=== PATIENT | male | born 1985 | race Caucasian/White ===

== ENCOUNTER 2018-11-05 19:11 | Emergency (ER) | payer OTHER ==
--- OUTSIDE RECORDS SUMMARY | 2018-11-05 19:14 | XMS REPORT | Clinical Summary ---
:1985 Author Organization [facility] Address [address] [place] [address] Care Team Providers Name Role Phone Asked, No Pcp Primary Care Provider Unavailable Allergies Active Allergy Reactions Severity Noted Date Comments Sulfamethoxazole-Trimethoprim Itching High 11/04/2018 Medications Medication Sig Dispensed Refills Start Date End Date Status zolpidem (AMBIEN) 10 Take 10 mg by 0 08/20/2018 Active mg tablet mouth nightly. albuterol (PROAIR INHALATION 1 11 10/18/2018 Active HFA,PROVENTIL PUFF EVERY HFA,VENTOLIN HFA) 90 4-6HOURS mcg/actuation NEEDED FOR inhaler SHORTNESS OF BREATH ALPRAZolam (XANAX) 2 Take 2 mg by 2 10/14/2018 Active MG tablet mouth 2 (two) times a day. metoprolol succinate Take 50 mg by 0 09/22/2018 Active XL (TOPROL-XL) 50 mg mouth daily. 24 hr tablet montelukast Take 10 mg by 3 10/26/2018 Active (SINGULAIR) 10 mg mouth daily. tablet HYDROcodone-acetamin Take 1 tablet 0 10/26/2018 Active ophen (NORCO) 10-325 by mouth 4 mg per tablet (four) times a day. omeprazole Take by mouth 2 10/07/2018 Active (PriLOSEC) 40 MG daily. capsule fenofibrate Take 160 mg by 0 Active (LOFIBRA) 160 MG mouth daily. tablet brompheniramine-pseu TAKE 5ML BY 0 10/19/2018 Discontinued doeph-DM 2-30-10 MOUTH EVERY 8 9 mg/5 mL syrup HOURS NEEDED FOR COUGH. cyclobenzaprine Take 10 mg by 2 10/01/2018 Discontinued (FLEXERIL) 10 mg mouth 2 (two) 9 tablet times a day. fenofibrate Take 160 mg by 2 10/12/2018 Discontinued (LOFIBRA) 160 MG mouth daily. 9 tablet fluocinonide (LIDEX) 0 11/04/2018 Discontinued 0.05 % external 9 solution Active Problems Problem Noted Date MCI (mild cognitive impairment) 11/04/2018 Nonintractable headache 11/04/2018 Cervical disc disease 11/04/2018 Encounters Date Type Specialty Care Team Description 11/04/2018 Office Visit Neurology Nuan Akhtar, MCI (mild cognitive impairment) (Primary Dx); Nonintractable headache, unspecified chronicity pattern, unspecified headache type; Cervical disc disease; Fatigue, unspecified type after 11/04/2017 Social History Tobacco Use Types Packs/Day Years Used Date Former Smoker Smokeless Tobacco: Never Used Alcohol Use Drinks/Week oz/Week Comments Never Alcohol Habits Answer Date Recorded How often do you have a drink containing alcohol? Never 11/04/2018 How many drinks containing alcohol do you have on a typical Not asked day when you are drinking? How often do you have six or more drinks on one occasion? Not asked Sex Assigned at Date Recorded Not on file Job Start Date Occupation Industry Not on file Not on file Not on file Travel History Travel Start Travel End No recent travel history available. Last Filed Vital Signs Vital Sign Reading Time Taken Blood Pressure 141/84 11/04/2018 3:07 PM CDT Pulse 90 11/04/2018 3:07 PM CDT Temperature - - Respiratory Rate - - Oxygen Saturation - - Inhaled Oxygen Concentration - - Weight 102 kg (224 lb 11.2 oz) 11/04/2018 3:07 PM CDT Height 175.3 cm (5' 9") 11/04/2018 3:07 PM CDT Body Mass Index 33.18 11/04/2018 3:07 PM CDT Plan of Treatment Date Type Specialty Care Team Description 11/10/2018 Appointment Radiology Naun Akhtar MD [address] [address] 11/10/2018 Appointment Radiology Naun Akhtar MD [address] [address] 11/23/2018 Office Visit Neurology Naun Akhtar MD [address] [facility] [address] [place] [address] Health Maintenance Due Date Last Done Comments INFLUENZA VACCINE 12/30/2018 Results Not on fileafter 11/04/2017 Advance Directives Patient has advance care planning documents on file. For more information, please contact:Buster Cosby[address] [place] [address]
--- OUTSIDE RECORDS SUMMARY | 2018-11-05 19:14 | XMS REPORT ---
:1985 Author Organization [facility] Address [address] [place] [address] [address] [place] [address] Care Team Providers Name Role Phone Unavailable Unavailable Unavailable Problems This patient has no known problems. Allergies, Adverse Reactions, Alerts This patient has no known allergies or adverse reactions. Medications This patient has no known medications.
--- NOTE | 2018-11-05 20:20 | RAD REPORT ---
EXAM DESCRIPTION: CT - Head Brain Wo Cont - 11/05/2018 7:59 pm CLINICAL HISTORY: Headache COMPARISON: 2013 TECHNIQUE: Computed axial tomography of the head was obtained. IV contrast was not requested. All CT scans are performed using dose optimization technique as appropriate and may include automated exposure control or mA/KV adjustment according to patient size. FINDINGS: An intracranial bleed is not seen . The ventricles are normal in caliber. No extra-axial fluid collection is noted. Fluid within the sinuses/ mastoids is not seen. IMPRESSION: No acute intracranial abnormality is seen. If patient's symptoms persist MRI of the bra in would be recommended.
[2018-11-05] MEDS ORDERED: METOCLOPRAMIDE 10 MG/2mL INJ ONE (20:49)
[2018-11-05] MEDS ORDERED: KETOROLAC 30 MG/ML INJ ONE (20:49)
[2018-11-05] MEDS ORDERED: DIPHENHYDRAMINE 50 MG/ML VIAL ONE (20:49)
[2018-11-05] MEDS ORDERED: NA CHLORIDE 0.9% 1,000 ML ONE (20:49)
--- NOTE | 2018-11-05 21:21 | ER ---
Nurse's Notes [facility] Name: Steve Lee Age: 33 yrs Sex: Male : 1985 Arrival Date: 11/05/2018 Time: 19:14 Bed 28 Private MD: Diagnosis: Headache Presentation: 11/05 19:31 Presenting complaint: Patient states: "I have a headache for a week now. It just keeps jd3 getting worse. I tried to get get in with a neurologist, but they couldn't see me till next week or so. I did have a seizure recently from going cold turkey on my Xanax, but I don't think that is related.". Transition of care: patient was not received from another setting of care. Onset of symptoms was September 29, 2018. Risk Assessment: Do you want to hurt yourself or someone else? Patient reports no desire to harm self or others. Initial Sepsis Screen: Does the patient meet any 2 criteria? No. Patient's initial sepsis screen is negative. Does the patient have a suspected source of infection? No. Patient's initial sepsis screen is negative. Care prior to arrival: None. 19:31 Method Of Arrival: Ambulatory jd3 19:31 Acuity: ESTRELLITA 3 jd3 Triage Assessment: 20:01 Headache History: Denies prior headaches. General: Appears in no apparent distress. rv uncomfortable. Pain: Pain currently is 10 out of 10 on a pain scale. Pain began weeks ago Also complains of no other associated symptoms. Historical: - Allergies: 19:36 Bactrim; jd3 19:36 *unknown cream*; jd3 - Home Meds: 19:36 Xanax Oral [Active]; metoprolol tartrate 50 mg Oral tab 1 tab once daily for jd3 Hypertension [Active]; unknown cholesterol med [Active]; - PMHx: 19:36 Hyperlipidemia; Hypertension; Anxiety; High Cholesterol; jd3 - PSHx: 19:36 ANKLE; Hand; jd3 - Immunization history:: Adult Immunizations up to date. - Social history:: Smoking status: Patient uses tobacco products, denies chronic smoking, but will smoke occasionally. - Ebola Screening: : Patient negative for fever greater than or equal to 101.5 degrees Fahrenheit, and additional compatible Ebola Virus Disease symptoms. Screenin:36 Abuse screen: Denies threats or abuse. Nutritional screening: No deficits noted. jd3 Tuberculosis screening: No symptoms or risk factors identified. Fall Risk Ambulatory Aid- None/Bed Rest/Nurse Assist (0 pts). Gait- Normal/Bed Rest/Wheelchair (0 pts) Mental Status- Oriented to own ability (0 pts). Total Parsons Fall Scale indicates No Risk (0-24 pts). Assessment: 20:00 General: Appears in no apparent distress. uncomfortable, Behavior is calm, cooperative. rv Pain: Complains of pain in head. Neuro: Level of Consciousness is awake, alert, obeys commands, confused, Oriented to person, place, time, situation. Neuro: Reports headache. Cardiovascular: Patient's skin is warm and dry. Respiratory: Airway is patent. GI: No signs and/or symptoms were reported involving the gastrointestinal system. : No signs and/or symptoms were reported regarding the genitourinary system. EENT: No signs and/or symptoms were reported regarding the EENT system. Derm: Skin is intact. Musculoskeletal: No signs and/or symptoms reported regarding the musculoskeletal system. 21:01 Reassessment: Patient appears in no apparent distress at this time. Patient and/or rv family updated on plan of care and expected duration. Pain level reassessed. Patient is alert, oriented x 3, equal unlabored respirations, skin warm/dry/pink. EXPLAINED TO PATIENT BEFORE GIVING THE MEDICINES THAT HE NEEDS A RIDE HOME. PATIENT UNDERSTOOD AND AGREED VERBALLY. Vital Signs: 19:36 BP 146 / 87; Pulse 88; Resp 15 S; Temp 97.7(O); Pulse Ox 99% on R/A; Weight 99.79 kg jd3 (R); Height 5 ft. 9 in. (175.26 cm) (R); Pain 9/10; 20:00 BP 135 / 91; Pulse 92; Resp 17; Temp 98; Pulse Ox 97% ; rv 20:30 BP 124 / 71; Pulse 92; Resp 16; Pulse Ox 97% ; rv 21:01 BP 103 / 54; Pulse 89; Resp 17; Pulse Ox 96% ; rv 19:36 Body Mass Index 32.49 (99.79 kg, 175.26 cm) jd3 ED Course: 19:14 Patient arrived in ED. ag3 19:23 Hong, Graeme, RN is Primary Nurse. rv 19:25 Antony Mosley NP is PHCP. pm1 19:25 Ivan Duarte MD is Attending Physician. pm1 19:33 Triage completed. jd3 19:36 Arm band placed on. jd3 19:36 Patient has correct armband on for positive identification. Bed in low position. Call jd3 light in reach. Side rails up X 1. 19:[address] vm2 19:58 CT completed. Patient tolerated procedure well. Patient moved back from CT. vm2 20:00 CT Head Brain wo Cont In Process Unspecified. EDMS 20:00 Inserted saline lock: 20 gauge in left antecubital area, using aseptic technique. rv 21:38 No provider procedures requiring assistance completed. IV discontinued, intact, rv bleeding controlled, No redness/swelling at site. Pressure dressing applied. Administered Medications: 20:47 Drug: NS 0.9% 1000 ml Route: IV; Rate: 1000 ml; Site: left antecubital; rv 21:38 Follow up: IV Status: Completed infusion rv 20:50 Drug: TORadol 30 mg Route: IVP; Site: left antecubital; rv 21:37 Follow up: Response: Marked relief of symptoms rv 20:51 Drug: Benadryl 25 mg Route: IVP; Site: left antecubital; rv 21:37 Follow up: Response: Marked relief of symptoms rv 20:55 Drug: Reglan 10 mg Route: IVP; Site: left antecubital; rv 21:37 Follow up: Response: Marked relief of symptoms rv Outcome: 21:20 Discharge ordered by MD. pm1 21:38 Discharged to home ambulatory. rv 21:38 Condition: improved 21:38 Discharge instructions given to patient, Instructed on discharge instructions, follow up and referral plans. medication usage, Demonstrated understanding of instructions, follow-up care, medications, Prescriptions given X 1. 21:39 Patient left the ED. rv Signatures: Dispatcher [employer] EDID Antony Mosley NP [facility] pm1 Jenni Solorio vm2 Dalton Ward RN RN jd3 Graeme Pitts RN RN rv Krystle Talamantes ag3
--- NOTE | 2018-11-05 21:22 | EDPHYS ---
Physician Documentation [facility] Name: Steve Lee Age: 33 yrs Sex: Male : 1985 Arrival Date: 11/05/2018 Time: 19:14 Bed 28 Private MD: ED Physician Ivan Duarte HPI: 11/05 20:38 This 33 yrs old Male presents to ER via Ambulatory with complaints of pm1 Headache. 20:38 The patient complains of pain to the left side of head. The patient describes the pm1 headache as aching, constant. Onset: The symptoms/episode began/occurred 1 week(s) ago. Associated signs and symptoms: Pertinent positives: nausea, Pertinent negatives: dizziness, fever, neck stiffness, paresthesias, sinus congestion, sinus tenderness, vision changes, vision loss, vomiting, weakness. Severity of symptoms: in the emergency department the pain is unchanged. Headache History: Denies prior headaches. The symptoms are alleviated by Darkened room, over the counter pain medication, aspirin, quiet, the symptoms are aggravated by lights, noise. The patient has not experienced similar symptoms in the past. The patient has been recently seen by a physician: with similar presenting complaints, Seen by neurologist yesterday and has a MRI ordered for next week. Historical: - Allergies: 19:36 Bactrim; jd3 19:36 *unknown cream*; jd3 - Home Meds: 19:36 Xanax Oral [Active]; metoprolol tartrate 50 mg Oral tab 1 tab once daily for jd3 Hypertension [Active]; unknown cholesterol med [Active]; - PMHx: 19:36 Hyperlipidemia; Hypertension; Anxiety; High Cholesterol; jd3 - PSHx: 19:36 ANKLE; Hand; jd3 - Immunization history:: Adult Immunizations up to date. - Social history:: Smoking status: Patient uses tobacco products, denies chronic smoking, but will smoke occasionally. - Ebola Screening: : Patient negative for fever greater than or equal to 101.5 degrees Fahrenheit, and additional compatible Ebola Virus Disease symptoms. ROS: 20:38 Constitutional: Negative for fever, chills, and weight loss, Eyes: Negative for injury, pm1 pain, redness, and discharge, ENT: Negative for injury, pain, and discharge, Neck: Negative for injury, pain, and swelling, Cardiovascular: Negative for chest pain, palpitations, and edema, Respiratory: Negative for shortness of breath, cough, wheezing, and pleuritic chest pain. 20:38 Back: Negative for injury and pain, : Negative for injury, bleeding, discharge, and swelling, MS/Extremity: Negative for injury and deformity, Skin: Negative for injury, rash, and discoloration. 20:38 Abdomen/GI: Positive for nausea, Negative for abdominal pain, vomiting, diarrhea, constipation. 20:38 Neuro: Positive for headache, Negative for dizziness, numbness, tingling, weakness. Exam: 20:38 Constitutional: This is a well developed, well nourished patient who is awake, alert, pm1 and in no acute distress. Head/Face: Normocephalic, atraumatic. Eyes: Pupils equal round and reactive to light, extra-ocular motions intact. Lids and lashes normal. Conjunctiva and sclera are non-icteric and not injected. Cornea within normal limits. Periorbital areas with no swelling, redness, or edema. ENT: Nares patent. No nasal discharge, no septal abnormalities noted. Tympanic membranes are normal and external auditory canals are clear. Oropharynx with no redness, swelling, or masses, exudates, or evidence of obstruction, uvula midline. Mucous membranes moist. Neck: Trachea midline, no thyromegaly or masses palpated, and no cervical lymphadenopathy. Supple, full range of motion without nuchal rigidity, or vertebral point tenderness. No Meningismus. Chest/axilla: Normal chest wall appearance and motion. Nontender with no deformity. No lesions are appreciated. Cardiovascular: Regular rate and rhythm with a normal S1 and S2. No gallops, murmurs, or rubs. Normal PMI, no JVD. No pulse deficits. Respiratory: Lungs have equal breath sounds bilaterally, clear to auscultation and percussion. No rales, rhonchi or wheezes noted. No increased work of breathing, no retractions or nasal flaring. Abdomen/GI: Soft, non-tender, with normal bowel sounds. No distension or tympany. No guarding or rebound. No evidence of tenderness throughout. Back: No spinal tenderness. No costovertebral tenderness. Full range of motion. Skin: Warm, dry with normal turgor. Normal color with no rashes, no lesions, and no evidence of cellulitis. MS/ Extremity: Pulses equal, no cyanosis. Neurovascular intact. Full, normal range of motion. 20:38 Neuro: Orientation: is normal, Cranial nerves: CN II- XII are normal as tested, Cerebellar function: normal finger to nose testing, Motor: moves all fours, strength is normal, strength is 5/5 in all extremities, Sensation: is normal, no obvious gross deficits. Vital Signs: 19:36 BP 146 / 87; Pulse 88; Resp 15 S; Temp 97.7(O); Pulse Ox 99% on R/A; Weight 99.79 kg jd3 (R); Height 5 ft. 9 in. (175.26 cm) (R); Pain 9/10; 20:00 BP 135 / 91; Pulse 92; Resp 17; Temp 98; Pulse Ox 97% ; rv 20:30 BP 124 / 71; Pulse 92; Resp 16; Pulse Ox 97% ; rv 21:01 BP 103 / 54; Pulse 89; Resp 17; Pulse Ox 96% ; rv 19:36 Body Mass Index 32.49 (99.79 kg, 175.26 cm) jd3 MDM: 19:39 Patient medically screened. pm1 20:29 Data reviewed: vital signs. Data interpreted: Pulse oximetry: on room air is 99 %. pm1 Interpretation: normal. 20:39 Counseling: I had a detailed discussion with the patient and/or guardian regarding: the pm1 historical points, exam findings, and any diagnostic results supporting the discharge/admit diagnosis, radiology results, the need for outpatient follow up, a neurologist, to return to the emergency department if symptoms worsen or persist or if there are any questions or concerns that arise at home. 11/05 19:49 Order name: CT Head Brain wo Cont; Complete Time: 20:28 pm1 11/05 20:29 Order name: IV Saline Lock; Complete Time: 20:55 pm1 Administered Medications: 20:47 Drug: NS 0.9% 1000 ml Route: IV; Rate: 1000 ml; Site: left antecubital; rv 21:38 Follow up: IV Status: Completed infusion rv 20:50 Drug: TORadol 30 mg Route: IVP; Site: left antecubital; rv 21:37 Follow up: Response: Marked relief of symptoms rv 20:51 Drug: Benadryl 25 mg Route: IVP; Site: left antecubital; rv 21:37 Follow up: Response: Marked relief of symptoms rv 20:55 Drug: Reglan 10 mg Route: IVP; Site: left antecubital; rv 21:37 Follow up: Response: Marked relief of symptoms rv Disposition: 11/05/18 21:20 Discharged to Home. Impression: Headache. - Condition is Stable. - Discharge Instructions: General Headache Without Cause. - Prescriptions for Fiorinal 50- 325-40 mg Oral Capsule - take 1 capsule by ORAL route every 4 hours As needed - not to exceed 6 capsules per day; 20 capsule. - Medication Reconciliation Form, Thank You Letter, Antibiotic Education, Prescription Opioid Use form. - Follow up: Emergency Department; When: As needed; Reason: Worsening of condition. Follow up: Private Physician; When: 2 - 3 days; Reason: Recheck today's complaints, Continuance of care, Re-evaluation by your physician. - Problem is new. - Symptoms have improved. Addendum: 11/09/2018 16:36 Co-signature as Attending Physician, Ivan Duarte MD I agree with the assessment and t w4 plan of care. Signatures: Dispatcher [employer] EDMS Antony Mosley NP BOOKKEEPER ASSISTANT pm1 Dalton Ward RN RN jd3 Ivan Duarte MD MD tw4 Graeme Pitts RN RN rv Corrections: (The following items were deleted from the chart) 11/05 21:39 21:20 11/05/2018 21:20 Discharged to Home. Impression: Headache. Condition is Stable. rv Forms are Medication Reconciliation Form, Thank You Letter, Antibiotic Education, Prescription Opioid Use. Follow up: Emergency Department; When: As needed; Reason: Worsening of condition. Follow up: Private Physician; When: 2 - 3 days; Reason: Recheck today's complaints, Continuance of care, Re-evaluation by your physician. Problem is new. Symptoms have improved. pm1
[2018-11-05 23:10] VITALS: TEMP 98
[2018-11-05 23:13] VITALS: BP 103/54; O2SAT 96
== END 2018-11-05 21:39 | disposition home or self-care (01) ==
LOC: ER 19:11
DX: R51 Headache (principal); R11.0 Nausea; I10 Essential (primary) hypertension; E78.5 Hyperlipidemia, unspecified; E78.00 Pure hypercholesterolemia, unspecified; Z72.0 Tobacco use; Z88.1 Allergy status to other antibiotic agents
CPT/HCPCS: 70450; 96361; 96374; 96375; 99284; J2765; J7030

== ENCOUNTER 2020-05-06 11:45 | Emergency (ER) | payer OTHER ==
--- OUTSIDE RECORDS SUMMARY | 2020-05-06 11:48 | XMS REPORT | Clinical Summary ---
:1985 Author Organization [facility] Address [address] [place] [address] Care Team Providers Name Role Phone Naun Akhtar MD Primary Care Provider [phone] Allergies Active Allergy Reactions Severity Noted Date Comments Sulfamethoxazole-Trimethoprim Itching High 11/04/2018 Medications Medication Sig Dispensed Refills Start Date End Date Status zolpidem (AMBIEN) 10 Take 10 mg by mouth 0 9 Active mg tablet nightly. albuterol (PROAIR INHALATION 1 PUFF 11 10/18/2018 Active HFA,PROVENTIL EVERY 4-6HOURS HFA,VENTOLIN HFA) 90 NEEDED FOR mcg/actuation inhaler SHORTNESS OF BREATH ALPRAZolam (XANAX) 2 Take 2 mg by mouth 2 10/14/2018 Active MG tablet 2 (two) times a day. metoprolol succinate Take 50 mg by mouth 0 9 Active XL (TOPROL-XL) 50 mg daily. 24 hr tablet montelukast Take 10 mg by mouth 3 10/26/2018 Active (SINGULAIR) 10 mg daily. tablet HYDROcodone-acetamino Take 1 tablet by 0 10/26/2018 Active phen (NORCO) 10-325 mouth 4 (four) mg per tablet times a day. omeprazole (PriLOSEC) Take by mouth 2 10/07/2018 Active 40 MG capsule daily. fenofibrate (LOFIBRA) Take 160 mg by 0 Active 160 MG tablet mouth daily. Active Problems Problem Noted Date MCI (mild cognitive impairment) 11/04/2018 Nonintractable headache 11/04/2018 Cervical disc disease 11/04/2018 Medical History Medical History Date Comments Hypertension High cholesterol Memory loss Seizures (HCC) Head injury Social History Tobacco Use Types Packs/Day Years [...] six or more drinks on one occasion? 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
--- OUTSIDE RECORDS SUMMARY | 2020-05-06 11:48 | XMS REPORT | Continuity of Care Document ---
:1985 Author Organization [facility] t Address [address] [place] [address] Care Team Providers Name Role Phone Meek Akhtar MD Primary Care Physician Aram MARCOS Attending Clinician Problems Condition Condition Condition Status Onset Resolution Last Treating Co mments Source Name Details Category Date Date Treatment Clinician Date MCI (mild MCI (mild Disease Active Sandra ston cognitive cognitive 11-04 Meth carlos impairment impairment 00:00: st ) ) 00 Nonintract Nonintract Disease Active 2018- [place] able able 11-04 [facility] headache headache 00:00: st 00 Cervical Cervical Disease Active [place] on disc disc 11-04 [facility] disease disease 00:00: st 00 Allergies, Adverse Reactions, Alerts Allergy Allergy Status Severity Reaction(s) Onset Inactive Treating Comm ents Source Name Type Date Date Clinician Sulfamet Propensi Active Itching 2018-0 [place] on hoxazole ty to 11-04 [facility] -Trimeth adverse 00:00: st oprim reaction 00 s to drug Social History Social Habit Start Date Stop Date Quantity Comments Source History SDOH [place] [facility] B[facility] Sex Assigned At [facility] ethodist Tobacco use and 2018-11-10 2018-11-10 Never used [facility] ethodist exposure 00:00:00 00:00:00 Alcohol intake 2018-11-10 2018-11-10 Lifetime Buster Me thodist 00:00:00 00:00:00 non-drinker (finding) History SDOH 2018-11-04 2018-11-04 1 [place] [facility] odist Alcohol Frequency 00:00:00 00:00:00 Smoking Status Start Date Stop Date Source Former smoker 2018-11-10 00:00:00 2018-11-10 00:00:00 Buster Cosby Medications Ordered Filled Start Stop Current Ordering Indication Dosage Frequency Signature Comments Components Source Medication Medication Date Date Medication? Clinician (SIG) Name Name fenofibrate Yes 160mg QD Take 160 [place] (LOFIBRA) 6-06 mg by [facility] 160 MG 15:11: mouth st tablet 27 daily. montelukast Yes 10mg QD Take 10 mg [place] (SINGULAIR) 5-28 by mouth Meth carlos 10 mg 00:00: daily. st tablet 00 HYDROcodone Yes 1{tbl} Q.25D Take 1 [place] -acetaminop 5-28 tablet by Met aditya cash (NORCO) 00:00: mouth 4 st 10-325 mg 00 (four) per tablet times a day. albuterol Yes INHALATION [place] (PROAIR 5-20 1 PUFF [facility] HFA,PROVENT 00:00: EVERY st [place] 00 4-6HOURS HFA,VENTOLI NEEDED N HFA) 90 FOR mcg/actuati SHORTNESS on inhaler OF BREATH ALPRAZolam Yes 2mg Q.5D Take 2 mg [place] (XANAX) 2 5-16 by mouth 2 Meth carlos MG tablet 00:00: (two) st 00 times a day. omeprazole Yes QD Take by [place] (PriLOSEC) 5-09 mouth [facility] 40 MG 00:00: daily. st capsule 00 metoprolol Yes 50mg QD Take 50 mg [place] succinate 4-24 by mouth Method i XL 00:00: daily. st (TOPROL-XL) 00 50 mg 24 hr tablet zolpidem Yes 10mg QD Take 10 mg Sandra ston (AMBIEN) 10 3-22 by mouth Meth carlos mg tablet 00:00: nightly. st 00 Procedures This patient has no known procedures. Plan of Care Planned Activity Planned Date Details Comments Source Future Scheduled 2019-12-31 INFLUENZA VACCINE Carl n Mandaeism Test 00:00:00 [code = INFLUENZA VACCINE] Encounters Start End Encounter Admission Attending Care Care Encounter Source Date/Time Date/Time Type Type Clinicians Facility Department ID 2019-12-04 2019-12-04 Emergency [facility] [id number] 10:56:51 11:33:00 Caitlin Mcclure [id number] [place] [id number] [place] [id number] Results This patient has no known results.
[2020-05-06] MEDS ORDERED: LIDOCAINE 1% W/EPI 1:100,000 MDV 50 ML VIAL ONE (14:26)
[2020-05-06] MEDS ORDERED: BUPIVACAINE 0.5% PF 10 ML VIAL ONE (14:26)
[2020-05-06] MEDS ORDERED: LIDOCAINE 1% W/EPI 1:100,000 MDV 20 ML VIAL ONE (14:27)
--- NOTE | 2020-05-06 14:52 | ER ---
Nurse's Notes [facility] Name: Steve Lee Age: 35 yrs Sex: Male : 1985 Arrival Date: 05/06/2020 Time: 11:46 Bed 14 Private MD: Diagnosis: Abscess of anal and rectal regions Presentation: 05/06 12:15 Chief complaint: Patient states: possible rectal abscess x 1 week. Pt reports that this ss has occurred before in the past. Coronavirus screen: Client denies travel out of the [place] in the last 14 days. Ebola Screen: Patient denies exposure to infectious person. Patient denies travel to an Ebola-affected area in the 21 days before illness onset. Initial Sepsis Screen: Does the patient meet any 2 criteria? No. Patient's initial sepsis screen is negative. Does the patient have a suspected source of infection? Yes: Skin breakdown/wound. Risk Assessment: Do you want to hurt yourself or someone else? Patient reports no desire to harm self or others. Onset of symptoms was April 30, 2020. 12:15 Method Of Arrival: Ambulatory ss 12:15 Acuity: ESTRELLITA 3 ss Historical: - Allergies: 12:14 Bactrim; ss - Home Meds: 12:14 metoprolol tartrate 50 mg Oral tab 1 tab once daily for Hypertension [Active]; Prilosec ss Oral [Active]; Adderall XR Oral [Active]; - PMHx: 12:14 Anxiety; High Cholesterol; Hyperlipidemia; Hypertension; ss - PSHx: 12:14 ANKLE; Hand; ss - Immunization history:: Adult Immunizations not up to date, Social history: Smoking status: Patient reports the use of cigarette tobacco products, smokes one-half pack cigarettes per day. Screenin:44 Abuse screen: Denies threats or abuse. Denies injuries from another. Nutritional ec1 screening: No deficits noted. Tuberculosis screening: No symptoms or risk factors identified. Fall Risk None identified. Assessment: 14:21 General: Appears in no apparent distress. uncomfortable, Behavior is calm, cooperative. ec1 Pain: Complains of pain in perirectal left. Neuro: Level of Consciousness is awake, alert, obeys commands. Cardiovascular: Patient's skin is warm and dry. Respiratory: Airway is patent Respiratory effort is even, unlabored. GI: Reports constipation. GI: Rectal exam: Hemorrhoids noted, abscess to right upper perirectal area. : No signs and/or symptoms were reported regarding the genitourinary system. EENT: No signs and/or symptoms were reported regarding the EENT system. Derm: abscess to perirectal area. Musculoskeletal: No signs and/or symptoms reported regarding the musculoskeletal system. Vital Signs: 12:15 BP 134 / 96; Pulse 92; Resp 14; Temp 97.8(TE); Pulse Ox 99% on R/A; Weight 99.79 kg; ss Height 5 ft. 9 in. (175.26 cm); Pain 8/10; 12:15 Body Mass Index 32.49 (99.79 kg, 175.26 cm) ss ED Course: 11:46 Patient arrived in ED. ds1 12:16 Triage completed. ss 12:16 Arm band placed on right wrist. ss 13:51 Cipriano Stout PA is PHCP. cp 13:51 Brendan Salmon MD is Attending Physician. cp 14:05 Catherine Estrada RN is Primary Nurse. ec1 14:44 Placed in gown. Bed in low position. ec1 14:44 Assist provider with I \T\ D: of an abscess on perianal Set up I\T\D tray. Performed by ec 1 Cipriano CHILEL Wound packed. iodoform gauze, Patient tolerated well. 14:50 Matthew Madsen MD is Referral Physician. cp 15:25 Patient did not have IV access during this emergency room visit. ec1 Administered Medications: 14:43 Drug: Lidocaine-Epinephrine -1%: (1:100,000) 5 ml {Note: into perirectal abscess, by ec1 Argelia Coats} Volume: 20 ml; Route: Infiltration; 14:43 Drug: Marcaine (0.5 %) 5 ml {Note: into abscess, perirectal by Argelia Coats} Volume: 10 ec1 ml; Route: Infiltration; 14:57 Drug: Hydrocodone-Acetaminophen (7.5 mg-325 mg) 1 tabs Route: PO; ec1 15:18 Follow up: Response: No adverse reaction ec1 14:57 Drug: Doxycycline 100 mg Route: PO; ec1 15:18 Follow up: Response: No adverse reaction ec1 14:57 Drug: Clindamycin 300 mg Route: PO; ec1 15:18 Follow up: Response: No adverse reaction ec1 Outcome: 14:51 Discharge ordered by MD. beckham 15:25 Discharged to home ec1 15:25 Condition: good 15:25 Discharge instructions given to patient, Instructed on discharge instructions, follow up and referral plans. Demonstrated understanding of instructions, follow-up care, medications, Prescriptions given X 3. 15:25 Patient left the ED. ec1 Signatures: Chula Jones ds1 Eileen Kurtz RN RN ss Cipriano Stout PA PA cp Cruz, Emily, RN RN ec1 Corrections: (The following items were deleted from the chart) 12:16 12:15 Acuity: ESTRELLITA 4 ss ss
--- NOTE | 2020-05-06 14:52 | EDPHYS ---
Physician Documentation [facility] Name: Steve Lee Age: 35 yrs Sex: Male : 1985 Arrival Date: 05/06/2020 Time: 11:46 Bed 14 Private MD: ED Physician Brendan Salmon HPI: 05/06 14:05 This 35 yrs old Male presents to ER via Ambulatory with complaints of Boil - cp Rash. 14:05 the patient presents with a swollen area of the rectal area. cp 14:05 Description: draining, swollen. cp 14:05 Onset: The symptoms/episode began/occurred 1 week(s) ago. cp 14:05 Associated signs and symptoms: Pertinent positives: drainage, swelling, Pertinent cp negatives: fever. Severity of symptoms: in the emergency department the symptoms are unchanged, despite home interventions. The patient has experienced similar episodes in the past, several times. Historical: - Allergies: 12:14 Bactrim; ss - Home Meds: 12:14 metoprolol tartrate 50 mg Oral tab 1 tab once daily for Hypertension [Active]; Prilosec ss Oral [Active]; Adderall XR Oral [Active]; - PMHx: 12:14 Anxiety; High Cholesterol; Hyperlipidemia; Hypertension; ss - PSHx: 12:14 ANKLE; Hand; ss - Immunization history:: Adult Immunizations not up to date, Social history: Smoking status: Patient reports the use of cigarette tobacco products, smokes one-half pack cigarettes per day. ROS: 14:10 : Positive for of the rectal pain. cp 14:10 Constitutional: Negative for body aches, chills, fever. cp 14:10 Abdomen/GI: Negative for abdominal pain, nausea, vomiting, and diarrhea. 14:10 Skin: Positive for swelling, of the rectum. 14:10 Neuro: Negative for altered mental status, headache, weakness. 14:10 All other systems are negative. Exam: 14:15 Constitutional: The patient appears in no acute distress, alert, awake, non-toxic, well cp developed, well nourished. 14:15 Cardiovascular: Rate: normal. 14:15 Respiratory: the patient does not display signs of respiratory distress, Respirations: cp normal. 14:15 Abdomen/GI: Inspection: abdomen appears normal, Palpation: abdomen is soft and non-tender, in all quadrants. 14:15 : Rectal exam: mild swelling, marked tenderness to area of rectum at approximate 2 o'clock position. Vital Signs: 12:15 BP 134 / 96; Pulse 92; Resp 14; Temp 97.8(TE); Pulse Ox 99% on R/A; Weight 99.79 kg; ss Height 5 ft. 9 in. (175.26 cm); Pain 8/10; 12:15 Body Mass Index 32.49 (99.79 kg, 175.26 cm) Procedures: 14:49 I \T\ D: Incision and drainage was performed for an abscess of the right perianal area. cp Prepped with Betadine, Anesthetized with 8 ccs of 1% lidocaine with epi and 0.5% marcaine. Incised with #11 blade. Drained moderate amount purulent fluid. Packed with iodoform gauze, Dressing: sterile 4x4 gauze, the patient tolerated the procedure well. MDM: 14:01 Patient medically screened. cp 14:45 Differential diagnosis: abscess, cellulitis, perirectal abscess, pilonidal cyst. cp 14:50 Data reviewed: vital signs, nurses notes, and as a result, I will discharge patient. cp 14:51 Counseling: I had a detailed discussion with the patient and/or guardian regarding: the cp historical points, exam findings, and any diagnostic results supporting the discharge/admit diagnosis, the need for outpatient follow up, a general surgeon, to return to the emergency department if symptoms worsen or persist or if there are any questions or concerns that arise at home. 14:51 Response to treatment: the patient's symptoms have markedly improved after treatment, cp and as a result, I will discharge patient. 15:08 ED course: Patient reports he has hydrocodone at home for back pain and requests cp medication for nausea. 12 14:12 Order name: I\T\D Setup; Complete Time: 14:21 cp Administered Medications: 14:43 Drug: Lidocaine-Epinephrine -1%: (1:100,000) 5 ml {Note: into perirectal abscess, by ec1 Argelia PA .} Volume: 20 ml; Route: Infiltration; 14:43 Drug: Marcaine (0.5 %) 5 ml {Note: into abscess, perirectal by Argelia PA .} Volume: 10 ec1 ml; Route: Infiltration; 14:57 Drug: Hydrocodone-Acetaminophen (7.5 mg-325 mg) 1 tabs Route: PO; ec1 15:18 Follow up: Response: No adverse reaction ec1 14:57 Drug: Doxycycline 100 mg Route: PO; ec1 15:18 Follow up: Response: No adverse reaction ec1 14:57 Drug: Clindamycin 300 mg Route: PO; ec1 15:18 Follow up: Response: No adverse reaction ec1 Disposition: 15:30 Chart complete. cp 15:47 Co-signature as Attending Physician, Brendan Salmon MD. rn Disposition: 05/06/20 14:51 Discharged to Home. Impression: Abscess of anal and rectal regions. - Condition is Stable. - Discharge Instructions: Perirectal Abscess, Perianal Abscess. - Prescriptions for Clindamycin HCl 300 mg Oral Capsule - take 1 capsule by ORAL route every 6 hours for 10 days; 40 capsule. Doxycycline Hyclate 100 mg Oral Tablet - take 1 tablet by ORAL route every 12 hours; 20 tablet. promethazine 25 mg Oral Tablet - take 1 tablet by ORAL route every 6 hours As needed; 20 tablet. - Work release form, Medication Reconciliation Form, Thank You Letter, Antibiotic Education, Prescription Opioid Use form. - Follow up: Matthew Madsen MD; When: 1 - 2 days; Reason: Recheck today's complaints. - Problem is new. - Symptoms have improved. Signatures: Brendan Salmon MD MD rn Smirch, Shelby, RN RN ss Page, Corey, PA PA cp Cruz, Emily RN RN ec1 Corrections: (The following items were deleted from the chart) 15:25 14:51 05/06/2020 14:51 Discharged to Home. Impression: Abscess of anal and rectal ec1 regions. Condition is Stable. Forms are Medication Reconciliation Form, Thank You Letter, Antibiotic Education, Prescription Opioid Use. Follow up: Dr. Matthew Madsen; When: 1 - 2 days; Reason: Recheck today's complaints. Problem is new. Symptoms have improved. cp 05/07 02:57 02:55 : Positive for of the rectal pain, cp cp
[2020-05-06] MEDS ORDERED: HYDROCODONE/APAP 7.5/325 MG TAB ONE (15:08)
[2020-05-06] MEDS ORDERED: DOXYCYCLINE 100 MG CAP PO ONE (15:08)
[2020-05-10 10:31] VITALS: BP 134/96; TEMP 97.8; O2SAT 99
== END 2020-05-06 15:25 | disposition home or self-care (01) ==
LOC: ER 11:45
PROC: 0D9P0ZZ Drainage of Rectum, Open Approach (ICD-10-PCS; principal; 2020-05-06)
DX: K61.2 Anorectal abscess (principal); I10 Essential (primary) hypertension; F41.9 Anxiety disorder, unspecified; F17.210 Nicotine dependence, cigarettes, uncomplicated; Z88.1 Allergy status to other antibiotic agents
CPT/HCPCS: 99283

== ENCOUNTER 2020-05-28 08:47 | Day surgery (SDC) | payer OTHER ==
[2020-05-23 15:02] LABS: Absolute Lymphocytes (CBC) 2.8 K/uL (0.7-4.9); Basophils % 0.6 % (0-1.3); Hematocrit 50.3 % (39.6-49.0); Lymphocytes % 35.8 % (15.3-44.8); MPV 7.8 fL (7.6-11.3); RBC Red Blood Cell Count 5.42 M/uL (4.33-5.43)
[2020-05-28] MEDS ORDERED: Ringers Lactate 1,000 ML IV ONE (09:10)
[2020-05-28] MEDS ORDERED: CEFOXITIN/SWI 1gm 1 GM/10 ML SYR ONE (09:11)
--- OUTSIDE RECORDS SUMMARY | 2020-05-28 09:46 | XMS REPORT | Clinical Summary ---
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
--- OUTSIDE RECORDS SUMMARY | 2020-05-28 09:46 | XMS REPORT | Continuity of Care Document ---
:1985 Author Organization [facility] t Address [address] [place] [address] Care Team Providers Name Role Phone Meek Akhtar MD Primary Care Physician Aram MARCOS Attending Clinician Problems Condition Condition Condition Status Onset Resolution Last Treating Co mments Source Name Details Category Date Date Treatment Clinician Date MCI (mild MCI (mild Disease Active Sandra ston cognitive cognitive 11-04 Meth carlos impairment impairment 00:00: st ) ) 00 Nonintract Nonintract Disease Active 2019- [place] able able 6 [facility] headache headache 00:00: st 00 Cervical [...] Stop Date Quantity Comments Source History SDOH [place] [facility] Alcohol Std Drinks History [facility] Meth odist Alcohol Binge Sex Assigned At [facility] ethodist Tobacco use and 2018-11-10 2018-11-10 Never used [facility] ethodist exposure 00:00:00 00:00:00 Alcohol intake 2018-11-10 2018-11-10 [facility]odist 00:00:00 00:00:00 non-drinker (finding) History SDOH 2018-11-04 2018-11-04 1 [facility] Alcohol Frequency 00:00:00 00:00:00 Smoking Status Start Date Stop Date Source Former smoker 2018-11-10 00:00:00 2018-11-10 00:00:00 [facility] Medications Ordered Filled Start Stop Current Ordering [...] a day. omeprazole Yes QD Take by Karen ton (PriLOSEC) 5-09 mouth Methodi 40 MG [...] Source Future Scheduled 2019-12-31 INFLUENZA VACCINE Carl lockhart [facility] Test 00:00:00 [code = INFLUENZA VACCINE] Future Scheduled 2002 COVID-19 VACCINE [facility] Test 00:00:00 (#1) [code = COVID-19 VACCINE (#1)] Encounters Start End Encounter Admission Attending Care Care Encounter Source Date/Time Date/Time Type Type Clinicians Facility Department ID 2019-12-04 2019-12-04 Emergency [facility] [id number] 10:56:51 11:33:00 Caitlin Mcclure [id number] [place] [id number] [place] [id number] Results This patient has no known results.
[2020-05-28] MEDS ORDERED: propofoL 200 MG/20 ML VIAL IV ONE (09:53)
[2020-05-28] MEDS ORDERED: ONDANSETRON 4 MG/2 ML VIAL ONE ×2 (09:54→12:35)
[2020-05-28] MEDS ORDERED: LIDOCAINE 2% MPF 5 ML VIAL ONE (09:54)
[2020-05-28] MEDS ORDERED: dexAMETHasone 10 MG/ML VIAL ONE (09:54)
[2020-05-28] MEDS ORDERED: MIDAZOLAM HCL 2 MG/2 ML INJ ONE (09:54)
[2020-05-28] MEDS ORDERED: FENTANYL CITR 100 MCG/2 ML ONE ×2 (09:54→10:22)
[2020-05-28] MEDS ORDERED: KETOROLAC 30 MG/ML INJ ONE (09:55)
[2020-05-28] MEDS ORDERED: KETAMINE HCL 500 MG/5 ML VIAL ONE (10:21)
--- NOTE | 2020-05-28 12:06 | OP ---
Date of Procedure: 05/28/2020 Surgeon: Matthew Madsen MD Dancer Or Choreographer: None. Preoperative Diagnoses: Rectal pain, thrombosed hemorrhoid, and possible fistula. Postoperative Diagnoses: Rectal pain, thrombosed hemorrhoid, and possible fistula. Procedures Performed: Exam under anesthesia, rigid proctoscopy, hemorrhoidectomy, and fistulotomy. Estimated Blood Loss: Minimal. Specimens: Hemorrhoid, anterior midline. Findings: Anterior midline thrombosed hemorrhoid and fistula in the left lateral position with the t ract headed towards the posterior midline. Anesthesia: General. Complications: None. Disposition: The patient tolerated the procedure in stable condition and taken to Recovery in good g eneral condition. Procedure In Detail: The patient was brought to the OR and placed in supine position. General anest hesia begun. The patient was placed in the lithotomy position, prepped and draped in the usual steri le fashion. Exam under anesthesia and rigid proctoscopy performed. The patient had a small opening in the left lateral area around the anus and had an anterior midline thrombosed hemorrhoid. No other findings were identified. Subsequently, a probe was placed in the opening in the left lateral peria nal area tracking towards the posterior midline, but it was stopped and created a tract all the way i nto the anal canal and this was opened approximately 3 cm. There was lot granulation tissue, which w as debrided and all wound irrigated. Bleeding was controlled with cautery and a wet-to-dry normal sa line dressing change applied. Then, a Harmonic Scalpel was used to excise the external hemorrhoid th at was thrombosed in the anterior midline. Bleeding controlled with cautery and then Marcaine 0.5% w as infiltrated locally. Then, a wet-to-dry normal saline dressing change applied. The patient syed ated the procedure in stable condition and taken to Recovery in good general condition. Discharge Note: The patient will go to Day Surgery and home when stable. Disposition: Home. Condition: Stable. Discharge Instructions: Resume home medications and diet. Activity as tolerated. No heavy lifting. Remove outer dressing in a.m. Wet-to-dry normal saline dressing changes daily. 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 Sitz baths q.i.d. High-fiber diet. Colace 100 mg p.o. q.12, Procto-HC 2.5% to anus b.i.d., Metamuc il 1 tablespoon p.o. t.i.d., Tylenol No.3 one tablet p.o. q.4 p.r.n. pain. Follow up in my office in 2 weeks. Call for appointment. HAYDEE/[place] Voice ID: [id number] Report ID: [id number]
[2020-05-28] MEDS ORDERED: HYDROCODONE/APAP 7.5/325 MG TAB ONE (12:35)
[2020-05-28] MEDS ORDERED: PROMETHAZINE INJ 25 MG/ML AMP ONE (13:06)
[2020-05-28 13:40] VITALS: TEMP 97.3
[2020-05-28 13:41] VITALS: BP 130/80; O2SAT 97
== END 2020-05-28 13:15 | disposition home or self-care (01) ==
LOC: OR 08:47
PROVIDERS: ATTEND Surgery
PROC: 0D9Q0ZZ Drainage of Anus, Open Approach (ICD-10-PCS; 2020-05-28)
PROC: 0DJD8ZZ Inspection of Lower Intestinal Tract, Via Natural or Artificial Opening Endoscopic (ICD-10-PCS; 2020-05-28)
PROC: 06BY0ZC Excision of Hemorrhoidal Plexus, Open Approach (ICD-10-PCS; principal; 2020-05-28 10:00)
DX: K64.5 Perianal venous thrombosis (principal); U07.1 COVID-19
CPT/HCPCS: 85025; 36415; 88304; 46320; 46270; 45300; U0002; J2704; J2550; J2250; J3010 ×2; J1100; J7120; J2405 ×2